=== PATIENT | male | born 1990 | race Caucasian/White ===

== ENCOUNTER 2016-12-13 15:22 | Emergency (ER) | payer OTHER ==
--- NOTE | 2016-12-13 18:08 | EDDOCDS ---
Nurse's Notes [facility] Name: Salvador Rice Age: 26 yrs Sex: Male : 1990 Arrival Date: 12/13/2016 Time: 15:22 Bed PR Private MD: Armida Mayo [facility] Diagnosis: Other sprain of left index finger Presentation: 12/13 15:37 Presenting complaint: Patient states: fell down some stairs on 11/26/16 and his left dsf pointer finger was caught in a railing. pt thinks his finger is broke. Adult Sepsis Screening: The patient does not have new or worsening altered mentation. Patient's respiratory rate is less than 22. Systolic blood pressure is greater than 100. Patient has a qSOFA score of 0- Negative Sepsis Screen. Suicide/Homicide risk assessment- the patient denies having any suicidal and/or homicidal ideations and does not present with any other emotional, behavioral or mental health complaints. Status: The patient is an active duty service center assistant. Transition of care: patient was not received from another setting of care. 15:37 Acuity: DONNIE Level 4 dsf 15:37 Method Of Arrival: Walkin/Carried/Asstd dsf Triage Assessment: 15:38 General: Appears in no apparent distress, Behavior is appropriate for age, cooperative. dsf Pain: Location: dorsal aspect of middle phalanx of left index finger and dorsal aspect of proximal phalanx of left index finger Pain currently is 2 out of 10 on a pain scale. Quality of pain is described as throbbing. 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 Musculoskeletal: Reports pain in dorsal aspect of middle phalanx of left index finger and dorsal aspect of proximal phalanx of left index finger. Historical: - Allergies: Pertussis Vaccines; - Home Meds: 1. none - PMHx: none; - PSHx: left and right shoulder surgery; - Social history: Smoking status: Patient uses tobacco products, current every day smoker. No barriers to communication noted, The patient speaks fluent Lao, Speaks appropriately for age. - Family history: Not pertinent. - : The pt / caregiver states he / she is not on anticoagulants. Home medication list is obtained from the patient. - Exposure Risk Screening:: None identified. Screenin:05 Screening information is obtained from the patient. Fall risk: No risks identified. dsf Assistance ADL's: requires no assistance with activities of daily living. Abuse/DV Screen: The patient / caregiver reports he/she is: not in a situation that causes fear, pain or injury. Nutritional screening: No deficits noted. Advance Directives: Currently, there is no health care proxy. home support is adequate. Assessment: 18:04 Adult Sepsis Screening: The patient does not have new or worsening altered mentation. dsf Patient's respiratory rate is less than 22. Systolic blood pressure is greater than 100. Patient has a qSOFA score of 0- Negative Sepsis Screen. General: Appears in no apparent distress, Behavior is appropriate for age, cooperative. Neurological: Level of Consciousness is awake, alert. Cardiovascular: Capillary refill < 3 seconds. Respiratory: Airway is patent Respiratory effort is even, unlabored, Respiratory pattern is regular, symmetrical. Derm: Skin is pink, warm & dry. Musculoskeletal: Circulation, motion, and sensation intact. Vital Signs: 15:24 BP 137 / 87; Pulse 85; Resp 16; Temp 98.4; Pulse Ox 100% on R/A; Weight 95.25 kg (R); nb2 Height 74 in. (187.96 cm) (R); Pain 2/10; 17:58 BP 130 / 75; Pulse 62; Resp 18; Temp 98.4(TE); Pulse Ox 99% on R/A; Pain 2/10; ar3 15:24 Body Mass Index 26.96 (95.25 kg, 187.96 cm) nb2 Vitals: 15:24 Log In Time: December 13, 2016 at 15:12. nb2 ED Course: 15:23 Patient visited by Rocio Savage. nb2 15:23 Patient moved to Waiting nb2 15:24 [facility]. nb2 15:25 Patient visited by Rocio Savage. nb2 15:25 Patient moved to Pre RCE nb2 15:38 Triage Initiated dsf 16:24 Patient moved to Triage 2 dsf 17:10 Nico Robbins PA is PHCP. mo1 17:10 Mamadou Yanez MD is Attending Physician. mo1 17:17 Patient visited by Nico Robbins PA. mo1 17:27 Patient moved to TR1 ead 17:34 Patient name changed from Radha\\S\Rice\S\ to Salvador\S\ \S\Rice. EDMS 17:39 [facility] Payment Agreement was scanned into [employer] and attached to record. gjb 17:47 Patient moved to PR1 / 25 dsf 17:52 Armida Mayo [facility] is Referral Physician. mo1 17:53 Michel Ribera is Referral Physician. mo1 17:58 Patient visited by Ann Marie Banerjee PCA. ar3 18:05 The patient / caregiver is instructed regarding the plan of care and ED course. dsf 18:06 No IV's were initiated during this patient's visit. No procedures done that require dsf assistance. Order Results: There are currently no results for this order. Outcome: 17:53 Discharge ordered by Provider. mo1 18:05 Discharge Assessment: Patient awake, alert and oriented x 3. No cognitive and/or dsf functional deficits noted. Patient verbalized understanding of disposition instructions. patient administered narcotics - no. The following High Risk Discharge criteria are identified: None. Discharged to home ambulatory. Condition: stable. Discharge instructions given to patient, Instructed on discharge instructions, follow up and referral plans. Demonstrated understanding of instructions, Pt was receptive of discharge instructions/ teaching. No special radiology studies were completed. Property sent home with patient. 18:06 Patient left the ED. dsf Signatures: Dispatcher [employer] EDMS Ann Marie Banerjee PCA PCA ar3 Eufemia Reza RN RN dsf Nico Robbins PA PA mo1 Martha Grove RN RN ead Beck, Gabriela [facility] Rocio Savage2 BETINA
--- NOTE | 2016-12-13 18:08 | EDDOCDS ---
Physician Documentation [facility] Name: Salvador Rice Age: 26 yrs Sex: Male : 1990 Arrival Date: 12/13/2016 Time: 15:22 Bed PR Private MD: Armida Mayo [facility] Disposition: 12/13/16 17:53 Discharged to Home/Self Care. Impression: Other sprain of left index finger. - Condition is Stable. - Discharge Instructions: Finger Sprain. - Medication Reconciliation, Local Pharmacy Hours form. - Follow up: Armida Mayo [facility]; When: Call to arrange an appointment; Reason: Recheck today's complaints, Continuance of care. Follow up: Michel Ribera; When: Call to arrange an appointment; Reason: Recheck today's complaints, Continuance of care. - Problem is new. - Symptoms are unchanged. Historical: - Allergies: Pertussis Vaccines; - Home Meds: 1. none - PMHx: none; - PSHx: left and right shoulder surgery; - Social history: Smoking status: Patient uses tobacco products, current every day smoker. No barriers to communication noted, The patient speaks fluent Croatian, Speaks appropriately for age. - Family history: Not pertinent. - : The pt / caregiver states he / she is not on anticoagulants. Home medication list is obtained from the patient. - Exposure Risk Screening:: None identified. Vital Signs: 12/13 15:24 BP 137 / 87; Pulse 85; Resp 16; Temp 98.4; Pulse Ox 100% on R/A; Weight 95.25 kg / nb2 209.99 lbs (R); Height 74 in. (187.96 cm) (R); Pain 2/10; 17:58 BP 130 / 75; Pulse 62; Resp 18; Temp 98.4(TE); Pulse Ox 99% on R/A; Pain 2/10; ar3 15:24 Body Mass Index 26.96 (95.25 kg, 187.96 cm) nb2 MDM: 17:25 Fingers Ordered. EDMS 17:35 Financial registration complete. gjb 17:39 [facility] Payment Agreement was scanned into [employer] and attached to record. gjb 17:52 Splint Affected Extremity ordered. mo1 Signatures: Dispatcher [employer] EDMS Eufemia Reza,RN RN dsf Nico Robbins PA PA mo1 Connie Henderson The chart was reviewed and I authenticate all verbal orders and agree with the evaluation and treatment provided.Attachments: 17:39 [facility] Payment Agreement lorrie MTDD
--- NOTE | 2016-12-13 18:36 | REP ---
Left index finger series: Four views: History: Trauma to the index finger. Findings: Four views of the left index finger demonstrate soft tissue swelling about the PIP joint. No fracture or subluxation is apparent. No opaque foreign body or soft tissue gas is seen. Impression: No fracture noted. Signed by Maurice Cadet MD 12/13/2016 08:06 P
--- NOTE | 2016-12-15 19:06 | EDDOCDS ---
Physician Documentation [facility] Name: Salvador Rice Age: 26 yrs Sex: Male : 1990 Arrival Date: 12/13/2016 Time: 15:22 Bed PR Private MD: Armida Mayo [facility] Disposition: 12/13/16 17:53 Discharged to Home/Self Care. Impression: Other sprain of left index finger. - Condition is Stable. - Discharge Instructions: Finger Sprain. - Medication Reconciliation, Local Pharmacy Hours form. - Follow up: Armida Mayo [facility]; When: Call to arrange an appointment; Reason: Recheck today's complaints, Continuance of care. Follow up: Michel Ribera; When: Call to arrange an appointment; Reason: Recheck today's complaints, Continuance of care. - Problem is new. - Symptoms are unchanged. Historical: - Allergies: Pertussis Vaccines; - Home Meds: 1. none - PMHx: none; - PSHx: left and right shoulder surgery; - Social history: Smoking status: Patient uses tobacco products, current every day smoker. No barriers to communication noted, The patient speaks fluent Danish, Speaks appropriately for age. - Family history: Not pertinent. - : The pt / caregiver states he / she is not on anticoagulants. Home medication list is obtained from the patient. - Exposure Risk Screening:: None identified. Vital Signs: 12/13 15:24 BP 137 / 87; Pulse 85; Resp 16; Temp 98.4; Pulse Ox 100% on R/A; Weight 95.25 kg / nb2 209.99 lbs (R); Height 74 in. (187.96 cm) (R); Pain 2/10; 17:58 BP 130 / 75; Pulse 62; Resp 18; Temp 98.4(TE); Pulse Ox 99% on R/A; Pain 2/10; ar3 15:24 Body Mass Index 26.96 (95.25 kg, 187.96 cm) nb2 MDM: 17:25 Fingers Ordered. EDMS 17:35 Financial registration complete. gjb 17:39 [facility] Payment Agreement was scanned into [employer] and attached to record. gjb 17:52 Splint Affected Extremity ordered. mo1 Signatures: Dispatcher [employer] EDMS Eufemia Reza,RN RN dsf Nico Robbins PA PA mo1 Connie Henderson The chart was reviewed and I authenticate all verbal orders and agree with the evaluation and treatment provided.Attachments: 17:39 [facility] Payment Agreement lorrie Chart Complete MTDD
--- NOTE | 2016-12-15 19:06 | EDDOCDS ---
Nurse's Notes [facility] Name: Salvador Rice Age: 26 yrs Sex: Male : 1990 Arrival Date: 12/13/2016 Time: 15:22 Bed PR Private MD: Armida Mayo [facility] Diagnosis: Other sprain of left index finger Presentation: 12/13 15:37 Presenting complaint: Patient states: fell down some stairs on 11/26/16 and his left dsf pointer finger was caught in a railing. pt thinks his finger is broke. Adult Sepsis Screening: The patient does not have new or worsening altered mentation. Patient's respiratory rate is less than 22. Systolic blood pressure is greater than 100. Patient has a qSOFA score of 0- Negative Sepsis Screen. Suicide/Homicide risk assessment- the patient denies having any suicidal and/or homicidal ideations and does not present with any other emotional, behavioral or mental health complaints. Status: The patient is an active duty coordinator volunteer services. Transition of care: patient was not received from another setting of care. 15:37 Acuity: DONNIE Level 4 dsf 15:37 Method Of Arrival: Walkin/Carried/Asstd dsf Triage Assessment: 15:38 General: Appears in no apparent distress, Behavior is appropriate for age, cooperative. dsf Pain: Location: dorsal aspect of middle phalanx of left index finger and dorsal aspect of proximal phalanx of left index finger Pain currently is 2 out of 10 on a pain scale. Quality of pain is described as throbbing. 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 Musculoskeletal: Reports pain in dorsal aspect of middle phalanx of left index finger and dorsal aspect of proximal phalanx of left index finger. Historical: - Allergies: Pertussis Vaccines; - Home Meds: 1. none - PMHx: none; - PSHx: left and right shoulder surgery; - Social history: Smoking status: Patient uses tobacco products, current every day smoker. No barriers to communication noted, The patient speaks fluent Montserratian, Speaks appropriately for age. - Family history: Not pertinent. - : The pt / caregiver states he / she is not on anticoagulants. Home medication list is obtained from the patient. - Exposure Risk Screening:: None identified. Screenin:05 Screening information is obtained from the patient. Fall risk: No risks identified. dsf Assistance ADL's: requires no assistance with activities of daily living. Abuse/DV Screen: The patient / caregiver reports he/she is: not in a situation that causes fear, pain or injury. Nutritional screening: No deficits noted. Advance Directives: Currently, there is no health care proxy. home support is adequate. Assessment: 18:04 Adult Sepsis Screening: The patient does not have new or worsening altered mentation. dsf Patient's respiratory rate is less than 22. Systolic blood pressure is greater than 100. Patient has a qSOFA score of 0- Negative Sepsis Screen. General: Appears in no apparent distress, Behavior is appropriate for age, cooperative. Neurological: Level of Consciousness is awake, alert. Cardiovascular: Capillary refill < 3 seconds. Respiratory: Airway is patent Respiratory effort is even, unlabored, Respiratory pattern is regular, symmetrical. Derm: Skin is pink, warm & dry. Musculoskeletal: Circulation, motion, and sensation intact. Vital Signs: 15:24 BP 137 / 87; Pulse 85; Resp 16; Temp 98.4; Pulse Ox 100% on R/A; Weight 95.25 kg (R); nb2 Height 74 in. (187.96 cm) (R); Pain 2/10; 17:58 BP 130 / 75; Pulse 62; Resp 18; Temp 98.4(TE); Pulse Ox 99% on R/A; Pain 2/10; ar3 15:24 Body Mass Index 26.96 (95.25 kg, 187.96 cm) nb2 Vitals: 15:24 Log In Time: December 13, 2016 at 15:12. nb2 ED Course: 15:23 Patient visited by Rocio Savage. nb2 15:23 Patient moved to Waiting nb2 15:24 [facility]. nb2 15:25 Patient visited by Rocio Savage. nb2 15:25 Patient moved to Pre RCE nb2 15:38 Triage Initiated dsf 16:24 Patient moved to Triage 2 dsf 17:10 Nico Robbins PA is PHCP. mo1 17:10 Mamadou Yanez MD is Attending Physician. mo1 17:17 Patient visited by Nico Robbins PA. mo1 17:27 Patient moved to TR1 ead 17:34 Patient name changed from Salvador\S\\S\Rice\S\ to Salvador\S\ \S\Rice. EDMS 17:39 [facility] Payment Agreement was scanned into [employer] and attached to record. gjb 17:47 Patient moved to PR dsf 17:52 Armida Mayo [facility] is Referral Physician. mo1 17:53 Michel Ribera is Referral Physician. mo1 17:58 Patient visited by Ann Marie Banerjee PCA. ar3 18:05 The patient / caregiver is instructed regarding the plan of care and ED course. dsf 18:06 No IV's were initiated during this patient's visit. No procedures done that require dsf assistance. 19:22 Fingers Returned. EDMS Order Results: Radiology Order: Fingers Test: Fingers REASON FOR EXAMINATION: left index finger trauma;Trauma; Left index finger series: Four views:; ; History: Trauma to the index finger.; ; Findings: Four views of the left index finger demonstrate soft tissue swelling; about the PIP joint. No fracture or subluxation is apparent. No opaque foreign; body or soft tissue gas is seen.; ; Impression:; ; No fracture noted.; ; ; Signed by; Maurice Cadet MD 12/13/2016 08:06 P; Outcome: 17:53 Discharge ordered by Provider. mo1 18:05 Discharge Assessment: Patient awake, alert and oriented x 3. No cognitive and/or dsf functional deficits noted. Patient verbalized understanding of disposition instructions. patient administered narcotics - no. The following High Risk Discharge criteria are identified: None. Discharged to home ambulatory. Condition: stable. Discharge instructions given to patient, Instructed on discharge instructions, follow up and referral plans. Demonstrated understanding of instructions, Pt was receptive of discharge instructions/ teaching. No special radiology studies were completed. Property sent home with patient. 18:06 Patient left the ED. dsf Signatures: Dispatcher [employer] EDMS Ann Marie Banerjee PCA PCA ar3 Eufemia Reza RN RN dsf Nico Robbins PA PA mo1 Martha Grove RN RN ead Beck, Gabriela gjb Baart, Nicole nb2 Chart Complete MTDD
--- NOTE | 2016-12-15 19:06 | EDDOCDS ---
Physician Documentation [facility] Name: Salvador Rice Age: 26 yrs Sex: Male : 1990 Arrival Date: 12/13/2016 Time: 15:22 Bed PR Private MD: Armida Mayo [facility] Disposition: 12/13/16 17:53 Discharged to Home/Self Care. Impression: Other sprain of left index finger. - Condition is Stable. - Discharge Instructions: Finger Sprain. - Medication Reconciliation, Local Pharmacy Hours form. - Follow up: Armida Mayo [facility]; When: Call to arrange an appointment; Reason: Recheck today's complaints, Continuance of care. Follow up: Michel Ribera; When: Call to arrange an appointment; Reason: Recheck today's complaints, Continuance of care. - Problem is new. - Symptoms are unchanged. Historical: - Allergies: Pertussis Vaccines; - Home Meds: 1. none - PMHx: none; - PSHx: left and right shoulder surgery; - Social history: Smoking status: Patient uses tobacco products, current every day smoker. No barriers to communication noted, The patient speaks fluent Estonian, Speaks appropriately for age. - Family history: Not pertinent. - : The pt / caregiver states he / she is not on anticoagulants. Home medication list is obtained from the patient. - Exposure Risk Screening:: None identified. Vital Signs: 12/13 15:24 BP 137 / 87; Pulse 85; Resp 16; Temp 98.4; Pulse Ox 100% on R/A; Weight 95.25 kg / nb2 209.99 lbs (R); Height 74 in. (187.96 cm) (R); Pain 2/10; 17:58 BP 130 / 75; Pulse 62; Resp 18; Temp 98.4(TE); Pulse Ox 99% on R/A; Pain 2/10; ar3 15:24 Body Mass Index 26.96 (95.25 kg, 187.96 cm) nb2 MDM: 17:25 Fingers Ordered. EDMS 17:35 Financial registration complete. gjb 17:39 [facility] Payment Agreement was scanned into [employer] and attached to record. gjb 17:52 Splint Affected Extremity ordered. mo1 Signatures: Dispatcher [employer] EDMS Eufemia Reza,RN RN dsf Nico Robbins PA PA mo1 Connie Henderson The chart was reviewed and I authenticate all verbal orders and agree with the evaluation and treatment provided.Attachments: 17:39 [facility] Payment Agreement lorrie Chart Complete MTDD
== END 2016-12-13 18:06 | disposition home or self-care (01) ==
LOC: M ED 15:22
DX: S63.691A Other sprain of left index finger, initial encounter (principal); F17.210 Nicotine dependence, cigarettes, uncomplicated; Z88.7 Allergy status to serum and vaccine; W23.1XXA Caught, crushed, jammed, or pinched between stationary objects, initial encounter; Y92.099 Unspecified place in other non-institutional residence as the place of occurrence of the external cause; Y93.01 Activity, walking, marching and hiking; Y99.9 Unspecified external cause status

== ENCOUNTER → 2017-07-11 | Outpatient (REF) | payer OTHER, SELFPAY ==
[2017-07-11 21:09] LABS: BASO % 0.5 % (0.0-1.0); EOS # 0.1 10^3/uL (0.0-0.50); EOS % 1.6 % (0.0-3.0); IMMATURE GRANULOCYTE % 0.3 % (0-0); LYMPH # 2.7 10^3/uL (1.5-6.5); LYMPH % 31.1 % (24.0-44.0); MEAN CORPUSCULAR VOLUME 92.7 fl (80.0-96.0); MONO # 0.7 10^3/uL (0.0-0.8); MONO % 7.4 % (0.0-5.0); NEUTROPHILS # 5.2 10^3/uL (1.8-7.7); NEUTROPHILS % 59.1 % (36.0-66.0); PLATELET COUNT, AUTOMATED 190 10^3/uL (150-450); RED CELL DISTRIBUTION WIDTH 13.9 % (11.5-14.5); WHITE BLOOD COUNT 8.8 10^3/uL (4.0-10.0)
[2017-07-11 21:24] LABS: INR 1.04
[2017-07-11 21:46] LABS: MEAN CORPUSCULAR HGB CONC 36.5 g/dl (32.0-36.5)
[2017-07-11 21:52] LABS: ALBUMIN 4.5 GM/DL (3.2-5.2); ALBUMIN/GLOBULIN RATIO 1.61 (1.00-1.93); ALKALINE PHOSPHATASE 54 U/L (45-117); ALT/SGPT 54 U/L (12-78); ANION GAP 8 MEQ/L (8-16); AST/SGOT 30 U/L (15-37); BILIRUBIN,TOTAL 6.1 MG/DL (0.2-1.0); BLOOD UREA NITROGEN 19 MG/DL (7-18); CALCIUM LEVEL 8.9 MG/DL (8.5-10.1); CARBON DIOXIDE LEVEL 30 MEQ/L (21-32); CHLORIDE LEVEL 101 MEQ/L (98-107); CREATININE FOR GFR 1.06 MG/DL (0.70-1.30); GLOMERULAR FILTRATION RATE > 60.0 (>60); GLUCOSE, FASTING 89 MG/DL (70-105); POTASSIUM SERUM 3.9 MEQ/L (3.5-5.1); SODIUM LEVEL 139 MEQ/L (136-145); TOTAL PROTEIN 7.3 GM/DL (6.4-8.2)
== END ==
LOC: M SFHCLERA 18:12
PROVIDERS: ATTEND Nurse Practitioner Family
DX: R10.11 Right upper quadrant pain (principal)
CPT/HCPCS: 80053; 85025; 85610; 86705; 86709; 86803; 87340; G0463

== ENCOUNTER → 2017-08-04 | Outpatient (REF) | payer OTHER ==
[2017-08-04 21:17] LABS: MEAN CORPUSCULAR HEMOGLOBIN 33.7 pg (27.0-33.0); MEAN CORPUSCULAR HGB CONC 35.8 g/dl (32.0-36.5); MEAN CORPUSCULAR VOLUME 94.2 fl (80.0-96.0); RED CELL DISTRIBUTION WIDTH 12.7 % (11.5-14.5); WHITE BLOOD COUNT 8.1 10^3/uL (4.0-10.0)
[2017-08-04 21:21] LABS: CBCMD ORDERED? YES (YES)
[2017-08-04 21:43] LABS: EOSINOPHILS 2 % (0-5)
[2017-08-04 21:58] LABS: ALBUMIN 4.7 GM/DL (3.2-5.2); ALBUMIN/GLOBULIN RATIO 1.81 (1.00-1.93); BILIRUBIN,DIRECT 0.4 MG/DL (0.0-0.2); FREE T4 1.1 NG/DL (0.76-1.46); TOTAL PROTEIN 7.3 GM/DL (6.4-8.2)
== END ==
LOC: M SFHCLERA 17:37
PROVIDERS: ATTEND Nurse Practitioner Family
DX: E80.6 Other disorders of bilirubin metabolism (principal)
CPT/HCPCS: 80076; 83615; 84439; 84443; 85007; 85027; G0463